=== PATIENT | male | born 1945 | race African-American/Black ===

== ENCOUNTER 2022-08-29 06:30 | Outpatient (REF) | payer SELFPAY ==
[2022-08-29 06:49] LABS: Hematocrit 25.3 % (42.0-52.0); Mean Corpuscular HGB Conc 31.6 g/dl (31.0-36.0); Mean Corpuscular Hemoglobin 27.1 pg (27.0-33.0); Mean Corpuscular Volume 85.8 fL (80.0-98.0); Mean Platelet Volume 10.5 fL (9.4-12.4); Platelet Count 245 X10*3/uL (160-400); Red Blood Count 2.95 X10*6/uL (4.60-5.80); Red Cell Distribution Width 15.2 % (11.0-16.0); White Blood Count 11.1 X10*3/uL (4.8-10.8)
[2022-08-29 07:37] LABS: Alanine Aminotransferase 22 U/L (0-40); Albumin Level 3.3 g/dL (3.5-5.0); Alkaline Phosphatase 87 U/L (39-117); Anion Gap 24 (12-20); Aspartate Amino Transferase 20 U/L (5-37); Bilirubin Total 0.4 mg/dL (0.0-1.0); Blood Urea Nitrogen 59 mg/dL (9-16); Calcium 10.3 mg/dL (8.4-10.2); Carbon Dioxide 26 mmol/L (22-29); Chloride 93 mmol/L (96-108); Estimated Glomerular Filt Rate 7; Glucose Random 91 mg/dL (60-115); Potassium 4.6 mmol/L (3.3-5.1); Sodium 138 mmol/L (135-145); Total Protein 7.7 g/dL (6.5-8.0)
== END 2022-08-29 06:31 | disposition home or self-care (01) ==
LOC: HO.MMNH1L 06:30
PROVIDERS: Visit Provider Family Medicine
DX: N18.6 End stage renal disease (principal); E11.9 Type 2 diabetes mellitus without complications; I73.9 Peripheral vascular disease, unspecified
CPT/HCPCS: 36415; 80053; 85027

== ENCOUNTER 2022-08-30 13:10 | Outpatient (REF) | payer MEDICARE, SELFPAY ==
[2022-08-30 14:14] LABS: Vancomycin Trough 16.8 mcg/mL (10.0-20.0)
== END 2022-08-30 13:11 | disposition home or self-care (01) ==
LOC: HO.MMNH1L 13:10
PROVIDERS: Visit Provider Family Medicine
DX: L97.509 Non-pressure chronic ulcer of other part of unspecified foot with unspecified severity (principal); I96 Gangrene, not elsewhere classified; Z79.2 Long term (current) use of antibiotics
CPT/HCPCS: 36415; 80202